=== PATIENT | female | born 1950 | race Caucasian/White ===

== ENCOUNTER → 2020-07-28 | Day surgery (SDC) | payer MEDICARE ==
[2020-07-28 12:02] VITALS: RESP 12; TEMP 99.2
[2020-07-28 13:40] VITALS: BP 155/76; PULSE 65
--- NOTE | 2020-07-29 22:49 | USB ---
EXAMINATION TYPE: US breast aspiration single RT DATE OF EXAM: 07/28/2020 CLINICAL HISTORY: R92.8 Abnormal Mammogram. TECHNIQUE: Ultrasound guided vaccuum assisted cyst aspiration of right breast. COMPARISON: NONE FINDINGS: The ultrasound guided cyst aspiration procedure was explained to the patient. The risks, benefits, alternatives were discussed. An informed consent was then obtained. Timeout was performed. The patient was placed in supine positioning for imaging and for the procedure. The overlying skin was prepped with betadine and sterilely draped in usual sterile fashion. Lidocaine 1% was used as anesthetic into the skin and deeper breast tissue up to area of concern in the breast. Under ultrasound guidance an 18-gauge needle was advanced into the hypoechoic area. There was easy aspiration of some bloody fluid. There is complete collapse of the structure compatible with a cyst. A biopsy clip was left in lesion. Wing clip was utilized. Good hemostasis was obtained with direct pressure. Discharge instructions were discussed with the patient. The patient will follow up with the referring physician for results. Postprocedure mammogram: The patient was transferred to mammography for physician ordered post procedure mammogram for clip placement verification. The clip is in the expected region of the cyst aspiration. The patient tolerated the procedure well without any immediate complication. The patient was discharged to home in stable condition. IMPRESSION: 1. Successful ultrasound guided cyst aspiration right breast. Pathology Results: Benign RIGHT BREAST, NINE O'CLOCK, ULTRASOUND GUIDED CYST ASPIRATE: Predominantly blood with degenerated cellular material, foamy histiocytes and bland apocrine lining cells consistent with benign apocrine cyst/cyst contents. Recommendation Follow up mammogram of the right breast in 6 months. M[place]
--- NOTE | 2020-07-30 09:07 | MM ---
Reason for exam: additional evaluation requested from abnormal screening. MG Diagnostic Mammo RT Wo CAD CC and MLO view(s) were taken of the right breast. ASSESSMENT: Post procedure mammogram for marker placement RECOMMENDATION: Ultrasound of the right breast in 6 months. PENDING PATHOLOGY RESULTS.
== END | disposition home or self-care (01) ==
LOC: RADUSWWP 11:35
PROVIDERS: ATTEND Surgery
DX: N60.01 Solitary cyst of right breast (principal)
CPT/HCPCS: 88108; 77065; 76942; 19000; A4648; J2001

== ENCOUNTER → 2020-08-06 | Outpatient (CLI) | payer MEDICARE ==
[2020-08-06 11:06] VITALS: BP 176/78; RESP 18; TEMP 98.1
[2020-08-06 11:08] VITALS: PULSE 67
--- NOTE | 2020-08-06 11:26 | P.GSHP ---
History of Present Illness H&P Date: 08/06/20 Chief Complaint: cyst aspiratio of the right breast Josye is a 70 -year-old white female seen in consultation for Zora Enrique/Dr. Jean who is status post bilateral [place] [facility] [place] [address]. This revealed a nodular 7 mm density posterior to the right nipple region. Ultrasound of the right breast was recommended. No lesions were described of concern in the left breast. The ultrasound of the right breast revealed a 0.7 x 0.7 cm hypoechoic structure which was most likely a complex cyst behind the nipple area and aspiration [place]. [place] [address]. This revealed blood with degenerative cellular material family histiocytes inflamed apocrine cells consistent with benign apocrine cyst contents. It was felt that the area had been adequately aspirated. The patient did not feel any lumps masses or nodules in her breast prior to the biopsy. She tolerated the procedure with no complaints. She under went a right breast stero biopsy in the past which was benign. She is not complaining of any nipple discharge or skin changes. Caffeine: Negative Nicotine:none Theophylline: Occasional Hormones:none Family History: 2 brothers: prostate cancer Hormonal History: menarche: 11 breast fed: no, age at first : 18 menopasue: 48 BCP: none hormones: none Surgical history: Bilateral cataract surgery Tonsillectomy Medical History: diabetic Social History: smoke: none alcohol: none drugs: none - Constitutional Constitutional: Denies chills, Denies fever - EENT Comment: Bilateral cataract surgery Ears: deny: decreased hearing, tinnitus Ears, nose, mouth and throat: Denies headache, Denies sore throat - Breasts Breasts: bilateral: as per HPI - Cardiovascular Cardiovascular: Denies chest pain, Denies shortness of breath - Respiratory Respiratory: Denies cough, Denies 7 - Gastrointestinal Gastrointestinal: Denies abdominal pain, Denies diarrhea, Denies nausea, Denies vomiting - Genitourinary (Female) Genitourinary: Denies dysuria, Denies hematuria - Menstruation Menstruation: Reports postmenopausal - Musculoskeletal Comment: arthritis Musculoskeletal: Denies myalgias - Integumentary Integumentary: Denies pruritus, Denies rash - Neurological Comment: ?CVA in the past Neurological: Denies numbness, Denies weakness - Psychiatric Psychiatric: Denies anxiety, Denies depression - Endocrine Endocrine: Denies fatigue, Denies weight change - Hematologic/Lymphatic Comment: Baby aspirin, Plavix - Allergic/Immunologic Allergic/Immunologic: Reports seasonal allergies Past Medical History Past Medical History: Diabetes Mellitus, Hyperlipidemia, Hypertension Additional Past Medical History / Comment(s): hx skin cancer History of Any Multi-Drug Resistant Organisms: None Reported Past Surgical History: Tonsillectomy Additional Past Surgical History / Comment(s): breast biopsy right breast, bilat cataract surgery Past Anesthesia/Blood Transfusion Reactions: No Reported Reaction Past Psychological History: No Psychological Hx Reported Smoking Status: Never smoker Past Alcohol Use History: None Reported Past Drug Use History: None Reported Medications and Allergies Home Medications Medication Instructions Recorded Confirmed Type Aspirin [Adult Low Dose Aspirin EC] 81 mg PO DAILY 07/12/20 07/28/20 History Benazepril HCl [Lotensin] 40 mg PO DAILY 07/12/20 07/28/20 History Canagliflozin [Invokana] 300 mg PO DAILY 07/12/20 07/28/20 History Clopidogrel [Plavix] 75 mg PO DAILY 07/12/20 07/28/20 History Dulaglutide [Trulicity] 1.5 mg SQ Q4-6H 07/12/20 07/28/20 History Glimepiride [Amaryl] 4 mg PO BID 07/12/20 07/28/20 History Naproxen Sodium [Aleve] 220 mg PO DAILY 07/12/20 07/28/20 History Potassium Chloride 10 meq PO DAILY 07/12/20 07/28/20 History Rosuvastatin Calcium [Crestor] 5 mg PO DAILY 07/12/20 07/28/20 History amLODIPine [Norvasc] 10 mg PO DAILY 07/12/20 07/28/20 History hydroCHLOROthiazide [Hydrodiuril] 12.5 mg PO DAILY 07/12/20 07/28/20 History Allergies Allergy/AdvReac Type Severity Reaction Status Date / Time No Known Allergies Allergy Verified 08/06/20 11:02 Surgical - Exam BMI 31.3 - General well developed, well nourished, no distress - Eyes normal ocular movement - ENT no hearing loss, no congestion - Neck no masses, trachea midline - Respiratory normal respiratory effort, clear to auscultation - Cardiovascular Rhythm: regular Heart Sounds: normal: S1, S2 - Abdomen Abdomen: soft, non tender, no guarding, no rigid, no rebound - Integumentary normal turgor - Neurologic no disoriented, no combative - Musculoskeletal normal gait - Psychiatric oriented to time, oriented to person, oriented to place, speech is normal, memory intact breast exam: BRA: 42D inspection: bilateral grade 3 ptosis palpation right breast: Multi-positional exam fibrocystic changes, no dominant masses or nodules of concern, there is some ecchymosis in the lateral periareolar region secondary to a trauma the patient had not related to the core biopsy core biopsy site is clean and dry Right axilla: A few shotty lymph nodes no adenopathy of concern Left breast: Multi-positional exam fibrocystic changes no dominant masses or nodules of concern Left axilla: No adenopathy of concern Results Mammogram ultrasound reports reviewed Assessment and Plan Assessment: Impression: 1. Patient status post ultrasound-guided core biopsy cystic lesion right breast benign 2. Fibrocystic breast changes 3. Family history of cancer 4. Diabetes 5. Hypertension 6. High cholesterol 7. No lesion which weren't interventional biopsy at this time Plan: 1. Repeat right breast ultrasound 6 months 2. Medical management of medical conditions 3. Patient refusing worsening initiate if this is high in the patient bumped her breast on the resulting in the achymosis CC: Dr. Ted Emanuel encounter 35 minutes, > 50% of time in planning and counselling
== END | disposition home or self-care (01) ==
LOC: WWCWWP 10:52
PROVIDERS: ATTEND Surgery
DX: Z53.9 Procedure and treatment not carried out, unspecified reason (principal)

== ENCOUNTER → 2021-01-05 | Outpatient (CLI) | payer MEDICARE ==
--- NOTE | 2021-01-05 12:16 | USB ---
Reason for exam: follow-up at short interval from prior study. History: Patient is postmenopausal and history of other cancer. Benign US breast aspiration single RT of the right breast, July 28, 2020. Stereotactic core biopsy of the right breast, 2000. Physical Findings: Nurse did not find any significant physical abnormalities on exam. US Breast Limited RT Right limited breast ultrasound including focal area of concern, retroareolar and axilla demonstrates a 4 x 3 x 8mm questionable duct at 9 o'clock, clip visualized. Scanned 9-12 o'clock. These results were verbally communicated with the patient and result sheet given to the patient on 01/05/21. ASSESSMENT: Incomplete: need additional imaging evaluation, BI-RAD 0 RECOMMENDATION: Special view mammogram of the right breast.
--- NOTE | 2021-01-05 12:18 | MM ---
Reason for exam: additional evaluation requested from prior study. Last mammogram was performed 5 months ago. History: Patient is postmenopausal and history of other cancer. Benign US breast aspiration single RT of the right breast, July 28, 2020. Stereotactic core biopsy of the right breast, 2000. MG Diagnostic Mammo RT w CAD CC and MLO view(s) were taken of the right breast. Prior study comparison: July 28, 2020, right breast MG diagnostic mammo RT wo CAD. There are scattered fibroglandular densities. Previous mammotome biopsy in the right breast x 2. The previous mass has resolved. No significant new findings when compared with previous films. These results were verbally communicated with the patient and result sheet given to the patient on 01/05/21. ASSESSMENT: Negative, BI-RAD 1 RECOMMENDATION: Follow-up diagnostic mammogram of both breasts in 6 months. Back on schedule for June 2021.
== END | disposition home or self-care (01) ==
LOC: RADUSWWP 08:18
PROVIDERS: ATTEND Surgery
DX: R92.8 Other abnormal and inconclusive findings on diagnostic imaging of breast (principal)
CPT/HCPCS: 77065

== ENCOUNTER → 2021-01-07 | Outpatient (CLI) | payer MEDICARE ==
[2021-01-07 10:52] VITALS: BP 182/63; PULSE 63; RESP 18; TEMP 98.3
--- NOTE | 2021-01-07 11:01 | P.PN ---
Subjective Progress Note Date: 01/07/21 Principal diagnosis: Fibrocystic breast changes Josey is a 70 -year-old white female seen in consultation for Zora Enrique/Dr. Jean who is status post bilateral mammogram performed [place] [facility] [place] [address]. This revealed a nodular 7 mm density posterior to the right nipple region. Ultrasound of the right breast was recommended. No lesions were described of concern in the left breast. The ultrasound of the right breast revealed a 0.7 x 0.7 cm hypoechoic structure which was most likely a complex cyst behind the nipple area and aspiration was [place]. [place] [address]. This revealed blood with degenerative cellular material histiocytes inflamed apocrine cells consistent with benign apocrine cyst contents. It was felt that the area had been adequately aspirated. The patient did not feel any lumps masses or nodules in her breast prior to the biopsy. She tolerated the procedure with no complaints. She under went a right breast stero biopsy in the past which was benign. The patient had a ultrasound repeated of the right breast and [id number]. This revealed a 4 x 8 mm questionable duct at 9:00. Specimen mammogram of the right breast was recommended. This was performed on the same day. This revealed previous mammotome biopsy area in the right breast 2. The previous mass which was of concern had resolved. No new findings were noted. This was considered a benign BIRADS 1 follow-up diagnostic mammogram of both breast in June was recommended. The patient has not noted any lumps masses or nodules in her breast. She is not complaining of any pain in her breast. Caffeine: Negative Nicotine:none Theophylline: Occasional Hormones:none Family History: 2 brothers: prostate cancer Hormonal History: menarche: 11 breast fed: no, age at first : 18 menopasue: 48 BCP: none hormones: none Surgical history: Bilateral cataract surgery Tonsillectomy Medical History: diabetic Social History: smoke: none alcohol: none drugs: none - Constitutional Constitutional: Denies chills, Denies fever - EENT Comment: Bilateral cataract surgery Ears: deny: decreased hearing, tinnitus Ears, nose, mouth and throat: Denies headache, Denies sore throat - Breasts Breasts: bilateral: as per HPI - Cardiovascular Cardiovascular: Denies chest pain, Denies shortness of breath - Respiratory Respiratory: Denies cough - Gastrointestinal Gastrointestinal: Denies abdominal pain, Denies diarrhea, Denies nausea, Denies vomiting - Genitourinary (Female) Genitourinary: Denies dysuria, Denies hematuria - Menstruation Menstruation: Reports postmenopausal - Musculoskeletal Comment: arthritis Musculoskeletal: Denies myalgias - Integumentary Integumentary: Denies pruritus, Denies rash - Neurological Comment: ?CVA in the past Neurological: Denies numbness, Denies weakness - Psychiatric Psychiatric: Denies anxiety, Denies depression - Endocrine Endocrine: Denies fatigue, Denies weight change - Hematologic/Lymphatic Comment: Baby aspirin, Plavix - Allergic/Immunologic Allergic/Immunologic: Reports seasonal allergies Objective - Constitutional General appearance: Present: average body habitus - EENT Eyes: Present: EOMI ENT: Present: hearing grossly normal - Neck Neck: Present: normal ROM - Respiratory Respiratory: bilateral: CTA - Cardiovascular Rhythm: regular Heart sounds: normal: S1, S2 - Integumentary Integumentary: Present: normal turgor - Musculoskeletal Musculoskeletal: Present: gait normal - Psychiatric Psychiatric: Present: A&O x's 3, appropriate affect, intact judgment & insight - Additional findings Additional findings: breast exam: BRA: 44D inspection: bilateral grade 3 ptosis palpation: Right breast: Multiple positional exam fibrocystic changes, no dominant masses or nodules of concern, nevus upper breast which has some scaling on it patient states that this has not changed most likely seborrheic keratosis Right axilla: No adenopathy of concern Breast is rubbing on a another nevus which is pedunculated left breast: Multi-positional exam fibrocystic changes no dominant masses or nodules of concern Left axilla: No adenopathy of concern Assessment and Plan Assessment: Impression: 1. Diabetes 2. Stable fibrocystic breast disease nothing which would warrant interventional biopsy in the breast at this time 3. Pedunculated nevus irritated by the breast rubbing on it to be removed 4. Fungal infection under the right breast Plan: 1. Bilateral mammogram in 6 months 2. Resection of pedunculated nevus under right breast 3. Nystatin to affected area under right breast 4. Follow-up in 6 months CC: Dr. Jean, Zora Enrique Encounter 25 minutes: time spent in reviewing medical records, examination, and counselling
--- NOTE | 2021-01-07 11:12 | P.PCN ---
Date of Procedure: 01/07/21 Preoperative Diagnosis: Pedunculated skin tag under right breast/irritated by breast Postoperative Diagnosis: Same Procedure(s) Performed: Excision of skin tag Anesthesia: local Surgeon: Marie Guerrero Pathology: other (Skin tag) Disposition: same day Indications for Procedure: Skin tag irritated by breast Description of Procedure: The area of concern was prepped using Betadine. 1% lidocaine was used to anesthetize the base of the pedunculated skin tag. This was excised and the lesion is sent to pathology. The base was cauterized using silver nitrate stick. The patient tolerated the procedure in stable condition.
== END | disposition home or self-care (01) ==
LOC: WWCWWP 10:33
PROVIDERS: ATTEND Surgery
DX: N60.11 Diffuse cystic mastopathy of right breast (principal); N60.12 Diffuse cystic mastopathy of left breast; E11.9 Type 2 diabetes mellitus without complications; B36.9 Superficial mycosis, unspecified
CPT/HCPCS: 88304